=== PATIENT | female | born 2000 | race Hispanic/Latino ===

== ENCOUNTER 2020-07-31 00:53 | Emergency (ER) | payer BC ==
[2020-07-31] MEDS ORDERED: SODIUM CHLORIDE 0.9% 1000ML 1,000 ML IV ONE (01:26)
[2020-07-31] MEDS ORDERED: ONDANSETRON HCL 4 MG/2 ML VIAL ONE (01:26)
[2020-07-31 01:32] LABS: BASOPHILS % (AUTO) 0.5 % (0.0-5.0); EOSINOPHILS % (AUTO) 2.6 % (0.0-8.0); LYMPHOCYTES % (AUTO) 26.4 % (21.0-51.0); MEAN CORPUSCULAR HEMOGLOBIN 30.6 pg (27.0-33.0); MEAN CORPUSCULAR HGB CONC 34.7 g/dL (32.0-36.0); MONOCYTES % (AUTO) 8.4 % (3.0-13.0); NEUTROPHILS % (AUTO) 61.8 % (40.0-77.0); PLATELET COUNT (AUTO) 228 K/uL (130-400); RED BLOOD CELL COUNT(AUTO) 4.32 MIL/uL (4.00-5.50); WHITE BLOOD COUNT (AUTO) 6.4 K/uL (4.8-10.8)
[2020-07-31 01:41] LABS: CREATININE 0.6 mg/dL (0.5-1.5); POTASSIUM 3.7 mmol/L (3.5-5.1)
[2020-07-31 01:46] LABS: BILIRUBIN,TOTAL 0.2 mg/dL (0.2-1.0); TOTAL PROTEIN, SERUM 7.8 g/dL (6.0-8.3)
[2020-07-31 02:07] LABS: APPEARANCE,URINE Clear (CLEAR); BILIRUBIN,URINE Negative (NEGATIVE); COLOR,URINE Yellow (YELLOW); GLUCOSE, URINE (UA) Negative (NEGATIVE); KETONES,URINE 15 mg/dL (NEGATIVE); LEUKOCYTE ESTERASE ,URINE Trace (NEGATIVE); NITRATE,URINE Negative (NEGATIVE); OCCULT BLOOD,URINE Negative (NEGATIVE); PH,URINE 5.5 (5.0-8.0); PROTEIN,URINE Negative (NEGATIVE)
[2020-07-31 02:19] LABS: BACTERIA,URINE Few /HPF (None Seen); MUCUS,URINE Few LPF (None Seen); RBC,URINE None Seen /HPF (0-1); SQUAMOUS EPITHELIAL CELL,UR Moderate /HPF (0-2); WBC,URINE 0-1 /HPF (0-1)
== END 2020-07-31 04:02 | disposition home or self-care (01) ==
LOC: EDH 00:53
DX: O21.0 Mild hyperemesis gravidarum (principal); Z3A.09 9 weeks gestation of pregnancy; Z79.899 Other long term (current) drug therapy
CPT/HCPCS: 36415; 80053; 81001; 85025; 96361; 96374; 99284; J2405; J7030

== ENCOUNTER 2020-08-12 23:18 | Emergency (ER) | payer BC ==
[2020-08-13 00:33] LABS: CREATININE 0.5 mg/dL (0.5-1.5); POTASSIUM 3.4 mmol/L (3.5-5.1)
[2020-08-13 00:37] LABS: ALBUMIN 3.5 g/dL (3.5-5.0); BILIRUBIN,TOTAL 0.1 mg/dL (0.2-1.0)
[2020-08-13 00:42] LABS: BASOPHILS % (AUTO) 0.5 % (0.0-5.0); EOSINOPHILS % (AUTO) 0.9 % (0.0-8.0); LYMPHOCYTES % (AUTO) 22.9 % (21.0-51.0); MEAN CORPUSCULAR HEMOGLOBIN 30.7 pg (27.0-33.0); MEAN CORPUSCULAR VOLUME 87.6 fL (80-100); MONOCYTES % (AUTO) 7.6 % (3.0-13.0); NEUTROPHILS % (AUTO) 67.8 % (40.0-77.0); PLATELET COUNT (AUTO) 214 K/uL (130-400); RED BLOOD CELL COUNT(AUTO) 3.88 MIL/uL (4.00-5.50); RED CELL DISTRIBUTION WIDTH 13.2 % (11.0-15.5); WHITE BLOOD COUNT (AUTO) 5.8 K/uL (4.8-10.8)
[2020-08-13 00:48] LABS: BILIRUBIN,URINE Negative (NEGATIVE); COLOR,URINE Yellow (YELLOW); GLUCOSE, URINE (UA) Negative (NEGATIVE); HCG,QUAL RESULT POSITIVE (NEGATIVE); KETONES,URINE Negative (NEGATIVE); LEUKOCYTE ESTERASE ,URINE Negative (NEGATIVE); NITRATE,URINE Negative (NEGATIVE); OCCULT BLOOD,URINE Negative (NEGATIVE); PH,URINE 7.5 (5.0-8.0); PROTEIN,URINE Negative (NEGATIVE); UROBILINOGEN,URINE 0.2 mg/dL (0.2-1.0)
[2020-08-13 00:49] LABS: APPEARANCE,URINE CLEAR (CLEAR)
== END 2020-08-13 01:20 | disposition home or self-care (01) ==
LOC: EDH 23:18
DX: O9A.211 Injury, poisoning and certain other consequences of external causes complicating pregnancy, first trimester (principal); S76.219A Strain of adductor muscle, fascia and tendon of unspecified thigh, initial encounter; Z3A.11 11 weeks gestation of pregnancy
CPT/HCPCS: 36415; 80053; 81003; 81025; 83690; 85025

== ENCOUNTER 2020-08-17 21:25 | Emergency (ER) | payer BC, MEDICAID ==
[2020-08-17] MEDS ORDERED: ACETAMINOPHEN 325 MG TAB ONE (21:47)
[2020-08-17 21:54] LABS: BASOPHILS % (AUTO) 0.3 % (0.0-5.0); EOSINOPHILS % (AUTO) 0.6 % (0.0-8.0); LYMPHOCYTES % (AUTO) 26.5 % (21.0-51.0); MEAN CORPUSCULAR HEMOGLOBIN 30.4 pg (27.0-33.0); MEAN CORPUSCULAR HGB CONC 34.3 g/dL (32.0-36.0); MEAN CORPUSCULAR VOLUME 88.5 fL (80-100); MONOCYTES % (AUTO) 6.8 % (3.0-13.0); NEUTROPHILS % (AUTO) 65.5 % (40.0-77.0); PLATELET COUNT (AUTO) 207 K/uL (130-400); RED BLOOD CELL COUNT(AUTO) 4.18 MIL/uL (4.00-5.50); RED CELL DISTRIBUTION WIDTH 13.4 % (11.0-15.5); WHITE BLOOD COUNT (AUTO) 6.6 K/uL (4.8-10.8)
[2020-08-17 22:03] LABS: CREATININE 0.6 mg/dL (0.5-1.5); POTASSIUM 4.3 mmol/L (3.5-5.1)
[2020-08-17 22:33] LABS: ALBUMIN 3.9 g/dL (3.5-5.0); BILIRUBIN,TOTAL 0.3 mg/dL (0.2-1.0); TOTAL PROTEIN, SERUM 7.8 g/dL (6.0-8.3)
[2020-08-17 23:23] LABS: APPEARANCE,URINE Clear (CLEAR); BILIRUBIN,URINE Negative (NEGATIVE); COLOR,URINE Yellow (YELLOW); GLUCOSE, URINE (UA) Negative (NEGATIVE); KETONES,URINE >=80 mg/dL (NEGATIVE); LEUKOCYTE ESTERASE ,URINE Trace (NEGATIVE); NITRATE,URINE Negative (NEGATIVE); OCCULT BLOOD,URINE Negative (NEGATIVE); PH,URINE 6.5 (5.0-8.0); PROTEIN,URINE Negative (NEGATIVE); UROBILINOGEN,URINE 0.2 mg/dL (0.2-1.0)
[2020-08-17 23:38] LABS: BACTERIA,URINE Few /HPF (None Seen); RBC,URINE 0-1 /HPF (0-1)
== END 2020-08-18 00:01 | disposition home or self-care (01) ==
LOC: EDH 21:25
DX: O9A.211 Injury, poisoning and certain other consequences of external causes complicating pregnancy, first trimester (principal); S30.0XXA Contusion of lower back and pelvis, initial encounter; O20.0 Threatened abortion; Z79.899 Other long term (current) drug therapy; Z3A.11 11 weeks gestation of pregnancy; W22.8XXA Striking against or struck by other objects, initial encounter; Y93.89 Activity, other specified; Y92.810 Car as the place of occurrence of the external cause; Y99.8 Other external cause status
CPT/HCPCS: 36415; 76801; 80053; 81001; 84702; 85025

== ENCOUNTER 2020-10-10 20:47 | Observation (INO) | payer BC, MEDICAID ==
[~2020-10-10] VITALS: Ht 167.6 cm; Wt 56.7 kg
[2020-10-10 21:25] LABS: APPEARANCE,URINE CLOUDY (CLEAR); BILIRUBIN,URINE NEGATIVE (NEGATIVE); COLOR,URINE YELLOW (YELLOW); GLUCOSE, URINE (UA) NEGATIVE (NEGATIVE); KETONES,URINE 15 mg/dL (NEGATIVE); LEUKOCYTE ESTERASE ,URINE NEGATIVE (NEGATIVE); NITRATE,URINE NEGATIVE (NEGATIVE); OCCULT BLOOD,URINE NEGATIVE (NEGATIVE); PH,URINE 7.5 (5.0-8.0); PROTEIN,URINE NEGATIVE (NEGATIVE); UROBILINOGEN,URINE 0.2 mg/dL (0.2-1.0)
[2020-10-10 21:33] LABS: AMPHET/METH SCREEN,URINE NEGATIVE (NEGATIVE); BARBITURATE SCREEN, URINE NEGATIVE (NEGATIVE); BENZODIAZEPINES SCREEN,URINE NEGATIVE (NEGATIVE); CANNABINOID SCREEN,URINE NEGATIVE (NEGATIVE); COCAINE SCREEN,URINE NEGATIVE (NEGATIVE); OPIATE SCREEN,URINE NEGATIVE (NEGATIVE); PHENCYCLIDINE SCREEN,URINE NEGATIVE (NEGATIVE)
[2020-10-10 21:36] LABS: BACTERIA,URINE Moderate /HPF (None Seen); RBC,URINE 0-1 /HPF (0-1); WBC,URINE 0-1 /HPF (0-1)
[2020-10-10 21:37] LABS: SQUAMOUS EPITHELIAL CELL,UR Few /HPF (0-2)
[2020-10-10 21:38] LABS: AMORPHOUS SEDIMENT,UR Few /LPF (None Seen)
== END 2020-10-10 22:20 | disposition home or self-care (01) ==
LOC: EDH 20:47 → LDH 20:48
PROVIDERS: ADMIT Obstetrics & Gynecology; ATTEND Obstetrics & Gynecology
DX: O26.892 Other specified pregnancy related conditions, second trimester (principal); R10.2 Pelvic and perineal pain; O36.8120 Decreased fetal movements, second trimester, not applicable or unspecified; Z3A.19 19 weeks gestation of pregnancy
CPT/HCPCS: 59025; 80305; 81001; 87088; 99284; G0378

== ENCOUNTER 2020-12-14 02:14 | Observation (INO) | payer BC, MEDICAID ==
[~2020-12-14] VITALS: Ht 170.2 cm; Wt 63.5 kg
[2020-12-14 03:03] LABS: APPEARANCE,URINE Clear (CLEAR); BILIRUBIN,URINE Negative (NEGATIVE); COLOR,URINE Yellow (YELLOW); GLUCOSE, URINE (UA) Negative (NEGATIVE); KETONES,URINE Negative (NEGATIVE); LEUKOCYTE ESTERASE ,URINE Negative (NEGATIVE); NITRATE,URINE Negative (NEGATIVE); OCCULT BLOOD,URINE Negative (NEGATIVE); PROTEIN,URINE Negative (NEGATIVE); UROBILINOGEN,URINE 0.2 mg/dL (0.2-1.0)
[2020-12-14 03:11] LABS: AMPHET/METH SCREEN,URINE NEGATIVE (NEGATIVE); BARBITURATE SCREEN, URINE NEGATIVE (NEGATIVE); BENZODIAZEPINES SCREEN,URINE NEGATIVE (NEGATIVE); CANNABINOID SCREEN,URINE NEGATIVE (NEGATIVE); COCAINE SCREEN,URINE NEGATIVE (NEGATIVE); OPIATE SCREEN,URINE NEGATIVE (NEGATIVE); PHENCYCLIDINE SCREEN,URINE NEGATIVE (NEGATIVE)
[2020-12-14] MEDS ORDERED: LACTATED RINGERS 1000ML 1,000 ML IV SCH (04:00)
[2020-12-14] MEDS ORDERED: FERR-82 PO (04:01)
[2020-12-14] MEDS ORDERED: PREN-196 PO (04:01)
== END 2020-12-14 07:30 | disposition home or self-care (01) ==
LOC: EDH 02:14 → LDH 02:15
PROVIDERS: ADMIT Obstetrics & Gynecology; ATTEND Obstetrics & Gynecology
DX: O26.853 Spotting complicating pregnancy, third trimester (principal); O26.893 Other specified pregnancy related conditions, third trimester; R10.2 Pelvic and perineal pain; Z3A.28 28 weeks gestation of pregnancy; Z87.891 Personal history of nicotine dependence
CPT/HCPCS: 59025; 80305; 81003; 96360; 96361; G0378 ×5

== ENCOUNTER 2020-12-28 14:49 | Observation (INO) | payer BC, MEDICAID ==
[~2020-12-28] VITALS: Ht 170.2 cm; Wt 63.5 kg
[~2020-12-28 14:49] MED LIST: FERR-82 PO; PREN-196 PO
[2020-12-28 15:41] LABS: APPEARANCE,URINE Clear (CLEAR); BILIRUBIN,URINE Negative (NEGATIVE); COLOR,URINE Yellow (YELLOW); GLUCOSE, URINE (UA) Negative (NEGATIVE); KETONES,URINE Negative (NEGATIVE); LEUKOCYTE ESTERASE ,URINE Negative (NEGATIVE); NITRATE,URINE Negative (NEGATIVE); OCCULT BLOOD,URINE Negative (NEGATIVE); PROTEIN,URINE Negative (NEGATIVE); UROBILINOGEN,URINE 0.2 mg/dL (0.2-1.0)
== END 2020-12-28 17:00 | disposition home or self-care (01) ==
LOC: EDH 14:51 → LDH 15:05
PROVIDERS: ADMIT Obstetrics & Gynecology; ATTEND Obstetrics & Gynecology
DX: O36.8130 Decreased fetal movements, third trimester, not applicable or unspecified (principal); Z3A.31 31 weeks gestation of pregnancy
CPT/HCPCS: 59025; 76819; 81003; G0378

== ENCOUNTER 2021-01-19 12:22 | Observation (INO) | payer BC, MEDICAID ==
[2021-01-19 13:07] LABS: APPEARANCE,URINE Clear (CLEAR); BILIRUBIN,URINE Negative (NEGATIVE); COLOR,URINE Yellow (YELLOW); GLUCOSE, URINE (UA) Negative (NEGATIVE); KETONES,URINE Negative (NEGATIVE); LEUKOCYTE ESTERASE ,URINE Negative (NEGATIVE); NITRATE,URINE Negative (NEGATIVE); OCCULT BLOOD,URINE Negative (NEGATIVE); PROTEIN,URINE Negative (NEGATIVE)
== END 2021-01-19 13:40 | disposition home or self-care (01) ==
LOC: LDH 12:22
PROVIDERS: ADMIT Obstetrics & Gynecology; ATTEND Obstetrics & Gynecology
DX: O62.9 Abnormality of forces of labor, unspecified (principal); Z3A.34 34 weeks gestation of pregnancy
CPT/HCPCS: 59025; 81003; G0378; G0379

== ENCOUNTER 2021-02-22 22:49 | Observation (INO) | payer BC, MEDICAID ==
[~2021-02-22] VITALS: Ht 170.2 cm; Wt 69.4 kg
[2021-02-22] MEDS ORDERED: LACTATED RINGERS 1000ML 1,000 ML IV PRN (23:00)
[2021-02-22 23:28] LABS: APPEARANCE,URINE Clear (CLEAR); BILIRUBIN,URINE Negative (NEGATIVE); COLOR,URINE Yellow (YELLOW); GLUCOSE, URINE (UA) Negative (NEGATIVE); KETONES,URINE Negative (NEGATIVE); LEUKOCYTE ESTERASE ,URINE Negative (NEGATIVE); NITRATE,URINE Negative (NEGATIVE); OCCULT BLOOD,URINE Negative (NEGATIVE); PROTEIN,URINE Negative (NEGATIVE)
[2021-02-23 02:57] VITALS: BP 113/70
== END 2021-02-23 03:00 | disposition home or self-care (01) ==
LOC: EDH 22:49 → LDH 23:03
PROVIDERS: ADMIT Obstetrics & Gynecology; ATTEND Obstetrics & Gynecology
DX: O62.9 Abnormality of forces of labor, unspecified (principal); Z3A.39 39 weeks gestation of pregnancy
CPT/HCPCS: 59025 ×2; 81003; G0378 ×4

== ENCOUNTER 2021-03-05 22:26 | Inpatient (IN) | payer BC, MEDICAID ==
[~2021-03-05] VITALS: Ht 167.6 cm; Wt 70.3 kg
[2021-03-05] MEDS ORDERED: LACTATED RINGERS 1000ML 1,000 ML IV PRN (23:00)
[2021-03-05] MEDS ORDERED: LACTATED RINGERS 500 ML 500 ML IV PRN (23:00)
[2021-03-05] MEDS ORDERED: PROMETHAZINE HCL 25 MG/ML 1ML AMPULE IM PRN (23:00)
[2021-03-05] MEDS ORDERED: DINOPROSTONE 10 MG VAGINAL SUPP VG SCH (23:00)
[2021-03-05] MEDS ORDERED: NALOXONE HCL 0.4 MG/1 ML ML IV PRN (23:00)
[2021-03-05] MEDS ORDERED: ROPIVACAINE 0.2% 100ML VIAL 100 ML EP PRN (23:00)
[2021-03-05] MEDS ORDERED: MEPERIDINE-PF 50 MG/ML SYG IVP PRN (23:00)
[2021-03-05] MEDS ORDERED: EPHEDRINE SULFATE 50 MG/ML AMPULE IVP PRN (23:00)
[2021-03-05 23:32] LABS: APPEARANCE,URINE Clear (CLEAR); BILIRUBIN,URINE Negative (NEGATIVE); COLOR,URINE Yellow (YELLOW); GLUCOSE, URINE (UA) Negative (NEGATIVE); KETONES,URINE 15 mg/dL (NEGATIVE); LEUKOCYTE ESTERASE ,URINE Negative (NEGATIVE); NITRATE,URINE Negative (NEGATIVE); OCCULT BLOOD,URINE Negative (NEGATIVE); PROTEIN,URINE Negative (NEGATIVE)
[2021-03-05 23:55] VITALS: BP 120/78
[2021-03-06 00:07] LABS: HEMATOCRIT 31.9 % (36-48); MEAN CORPUSCULAR HEMOGLOBIN 28.3 pg (27.0-33.0); MEAN CORPUSCULAR HGB CONC 32.3 g/dL (32.0-36.0); MEAN CORPUSCULAR VOLUME 87.6 fL (79-99); RED BLOOD CELL COUNT(AUTO) 3.64 MIL/uL (4.00-5.50); RED CELL DISTRIBUTION WIDTH 15.7 % (11.0-15.5); WHITE BLOOD COUNT (AUTO) 6.3 K/uL (4.8-10.8)
[2021-03-06] MEDS ORDERED: OXYTOCIN-LR 20 UNITS/1000 ML 1,000 ML IV SCH (09:00)
[2021-03-06] MEDS ORDERED: MISOPROSTOL 100 MCG TABLET VG SCH (18:30)
[2021-03-07] MEDS ORDERED: MISOPROSTOL 200 MCG TABLET ONE (04:41)
[2021-03-07] MEDS ORDERED: METHYLERGONOVINE MALEATE 0.2 MG/1 ML ML ONE (04:41)
[2021-03-07] MEDS ORDERED: ACETAMINOPHEN 325 MG TAB PO PRN (05:30)
[2021-03-07] MEDS ORDERED: BENZOCAINE/LANOLIN/ALOE VERA 60 ML AEROSOL TP PRN (05:30)
[2021-03-07] MEDS ORDERED: LANOLIN 30GM OINTMENT TP PRN (05:30)
[2021-03-07] MEDS ORDERED: MEASLES/MUMPS/RUBELLA VACCINE, LIVE 0.5 ML/VIAL SQ PRN (05:30)
[2021-03-07] MEDS ORDERED: DIPH,PERTUSS(ACELL),TET VAC/PF 0.5 ML VIAL IM PRN (05:30)
[2021-03-07] MEDS ORDERED: OXYTOCIN-LR 20 UNITS/1000 ML 1,000 ML IV SCH (05:30)
[2021-03-07] MEDS ORDERED: WITCH HAZEL 1 PAD TP PRN (05:30)
[2021-03-07 07:20] VITALS: BP 123/67
[2021-03-07 08:15] LABS: HEPATITIS Bs ANTIGEN SCREEN P Negative (Negative)
[2021-03-07] MEDS: DOCUSATE SODIUM 100 MG CAP PO SCH ×2 (08:15→20:44)
[2021-03-07] MEDS: IBUPROFEN 600 MG TABLET PO PRN ×3 (08:33→23:27)
[2021-03-07] MEDS: ACETAMINOPHEN WITH CODEINE 1 TAB TAB PO PRN ×2 (10:18→20:46)
[2021-03-07 16:05] VITALS: BP 112/68
[2021-03-07] MEDS ORDERED: PREN-61 PO (16:44)
[2021-03-07] MEDS ORDERED: FERR-72 PO (16:44)
[2021-03-07 19:18] VITALS: BP 133/89
[2021-03-07 20:24] VITALS: BP 107/51
[2021-03-07 23:22] VITALS: BP 116/73
[2021-03-08 03:00] VITALS: BP 120/53
[2021-03-08 06:48] LABS: HEMATOCRIT 29.1 % (36-48); MEAN CORPUSCULAR HGB CONC 31.3 g/dL (32.0-36.0); MEAN CORPUSCULAR VOLUME 89.5 fL (79-99); RED BLOOD CELL COUNT(AUTO) 3.25 MIL/uL (4.00-5.50); RED CELL DISTRIBUTION WIDTH 15.8 % (11.0-15.5); WHITE BLOOD COUNT (AUTO) 9.6 K/uL (4.8-10.8)
[2021-03-08 07:25] VITALS: BP 116/64
[2021-03-08] MEDS: DOCUSATE SODIUM 100 MG CAP PO SCH (07:49)
[2021-03-08] MEDS: IBUPROFEN 600 MG TABLET PO PRN (07:53)
[2021-03-08] MEDS ORDERED: IBUP-2077 PO (10:26)
[2021-03-08] MEDS ORDERED: DOCU-116 PO (10:27)
== END 2021-03-08 13:00 | disposition home or self-care (01) | DRG 806 ==
LOC: LDH 22:26 → WSH 03-07 07:05
PROVIDERS: ADMIT Obstetrics & Gynecology; ATTEND Obstetrics & Gynecology
PROC: 10E0XZZ Delivery of Products of Conception, External Approach (ICD-10-PCS; principal; 2021-03-07)
PROC: 0UQMXZZ Repair Vulva, External Approach (ICD-10-PCS; 2021-03-07)
PROC: 3E0234Z Introduction of Serum, Toxoid and Vaccine into Muscle, Percutaneous Approach (ICD-10-PCS; 2021-03-07)
PROC: 3E0134Z Introduction of Serum, Toxoid and Vaccine into Subcutaneous Tissue, Percutaneous Approach (ICD-10-PCS; 2021-03-07)
PROC: 3E033VJ Introduction of Other Hormone into Peripheral Vein, Percutaneous Approach (ICD-10-PCS; 2021-03-07)
PROC: 3E0P7GC Introduction of Other Therapeutic Substance into Female Reproductive, Via Natural or Artificial Opening (ICD-10-PCS; 2021-03-07)
PROC: 0UQGXZZ Repair Vagina, External Approach (ICD-10-PCS; 2021-03-07)
PROC: 3E0R3BZ Introduction of Anesthetic Agent into Spinal Canal, Percutaneous Approach (ICD-10-PCS; 2021-03-07)
PROC: 00HU33Z Insertion of Infusion Device into Spinal Canal, Percutaneous Approach (ICD-10-PCS; 2021-03-07)
DX: O99.344 Other mental disorders complicating childbirth (principal); O71.4 Obstetric high vaginal laceration alone; Z37.0 Single live birth; F41.9 Anxiety disorder, unspecified; O71.82 Other specified trauma to perineum and vulva; Z3A.40 40 weeks gestation of pregnancy; Z23 Encounter for immunization
CPT/HCPCS: 36415; 81003; 85027; 86592; 86850; 86900; 86901; 87340; A4314; G0378; J2210; J2590; J2795; J7120

== ENCOUNTER 2022-02-11 20:50 | Emergency (ER) | payer BC, MEDICAID ==
[~2022-02-11] VITALS: Ht 170.2 cm; Wt 54.0 kg
[~2022-02-11 20:50] MED LIST changes: +DOCU-116 PO; +FERR-72 PO; +IBUP-2077 PO; +PREN-61 PO
[2022-02-11 21:18] LABS: APPEARANCE,URINE CLEAR (CLEAR); BILIRUBIN,URINE NEGATIVE (NEGATIVE); COLOR,URINE YELLOW (YELLOW); GLUCOSE, URINE (UA) NEGATIVE (NEGATIVE); KETONES,URINE NEGATIVE (NEGATIVE); LEUKOCYTE ESTERASE ,URINE NEGATIVE (NEGATIVE); NITRATE,URINE NEGATIVE (NEGATIVE); OCCULT BLOOD,URINE NEGATIVE (NEGATIVE); PH,URINE 7.5 (5.0-8.0); PROTEIN,URINE NEGATIVE (NEGATIVE); UROBILINOGEN,URINE 0.2 mg/dL (0.2-1.0)
[2022-02-11 21:22] LABS: HCG,QUALITATIVE URINE NEGATIVE (NEGATIVE)
[2022-02-11] MEDS ORDERED: 0.9%NACL 1000ML 1,000 ML IV SCH (21:30)
[2022-02-11 21:33] LABS: BASOPHILS % (AUTO) 0.6 % (0.0-5.0); EOSINOPHILS % (AUTO) 1.7 % (0.0-8.0); LYMPHOCYTES % (AUTO) 47.1 % (21.0-51.0); MEAN CORPUSCULAR HEMOGLOBIN 31.7 pg (27.0-33.0); MEAN CORPUSCULAR HGB CONC 34.1 g/dL (32.0-36.0); MONOCYTES % (AUTO) 7.3 % (3.0-13.0); NEUTROPHILS % (AUTO) 43.1 % (40.0-77.0); PLATELET COUNT (AUTO) 209 K/uL (130-400); RED BLOOD CELL COUNT(AUTO) 4.41 MIL/uL (4.00-5.50); RED CELL DISTRIBUTION WIDTH 12.4 % (11.0-15.5); WHITE BLOOD COUNT (AUTO) 4.6 K/uL (4.8-10.8)
[2022-02-11 21:40] LABS: CREATININE 0.6 mg/dL (0.5-1.5); POTASSIUM 3.9 mmol/L (3.5-5.1)
[2022-02-11 21:51] LABS: ALBUMIN 4.1 g/dL (3.5-5.0); TOTAL PROTEIN, SERUM 7.4 g/dL (6.0-8.3)
[2022-02-11 22:18] VITALS: BP 120/75
== END 2022-02-11 22:20 | disposition home or self-care (01) ==
LOC: EDH 20:50
DX: I95.1 Orthostatic hypotension (principal); E86.0 Dehydration; Z79.1 Long term (current) use of non-steroidal anti-inflammatories (NSAID)
CPT/HCPCS: 99283; 96360; 80053; 85025; 81003; 81025; 36415; J7030

== ENCOUNTER 2023-11-18 15:04 | Emergency (ER) | payer BC, MEDICAID ==
[~2023-11-18] VITALS: Ht 170.2 cm; Wt 55.3 kg
[2023-11-18 16:20] LABS: BASOPHILS # (AUTO) 0.02 K/uL (0.00-0.20); BASOPHILS % (AUTO) 0.4 % (0.0-5.0); EOSINOPHILS # (AUTO) 0.04 K/uL (0.00-0.70); EOSINOPHILS % (AUTO) 0.8 % (0.0-8.0); HEMATOCRIT 37.4 % (36-48); IMMATURE GRANULOCYTE ABSOLUTE 0.01 K/uL (0-1); LYMPHOCYTES # (AUTO) 1.5 K/uL (1.0-4.8); LYMPHOCYTES % (AUTO) 28.9 % (21.0-51.0); MEAN CORPUSCULAR HEMOGLOBIN 31.8 pg (27.0-33.0); MEAN CORPUSCULAR HGB CONC 34.2 g/dL (32.0-36.0); MEAN CORPUSCULAR VOLUME 92.8 fL (79-99); MONOCYTES # (AUTO) 0.4 K/uL (0.1-1.0); MONOCYTES % (AUTO) 7.5 % (3.0-13.0); NEUTROPHILS # (AUTO) 3.2 K/uL (1.8-7.7); NEUTROPHILS % (AUTO) 62.2 % (40.0-77.0); PLATELET COUNT (AUTO) 207 K/uL (130-400); RED BLOOD CELL COUNT(AUTO) 4.03 MIL/uL (4.00-5.50); RED CELL DISTRIBUTION WIDTH 12.4 % (11.0-15.5); WHITE BLOOD COUNT (AUTO) 5.1 K/uL (4.8-10.8)
[2023-11-18 16:30] LABS: CREATININE 0.6 mg/dL (0.5-1.0); POTASSIUM 3.7 mmol/L (3.5-5.1)
[2023-11-18 16:31] LABS: INR <= 0.93 (0.85-1.15); PROTHROMBIN TIME 10.9 SEC (9.6-11.6)
[2023-11-18 16:32] LABS: PARTIAL THROMBOPLASTIN TIME 30.2 SEC (26.3-35.5)
[2023-11-18 17:14] LABS: APPEARANCE,URINE CLEAR (CLEAR); BILIRUBIN,URINE NEGATIVE (NEGATIVE); COLOR,URINE YELLOW (YELLOW); GLUCOSE, URINE (UA) NEGATIVE (NEGATIVE); KETONES,URINE NEGATIVE (NEGATIVE); LEUKOCYTE ESTERASE ,URINE NEGATIVE Leu/uL (NEGATIVE); NITRATE,URINE NEGATIVE (NEGATIVE); OCCULT BLOOD,URINE NEGATIVE (NEGATIVE); PH,URINE 6.5 (5.0-8.0); PROTEIN,URINE NEGATIVE (NEGATIVE); UROBILINOGEN,URINE 0.2 mg/dL (0.2-1.0)
[2023-11-18 17:15] LABS: ADD UA MICROSCOPIC YES
[2023-11-18 17:16] LABS: HCG,QUALITATIVE URINE POSITIVE (NEGATIVE)
[2023-11-18 17:24] LABS: BACTERIA,URINE RARE /HPF (None Seen); MUCUS,URINE RARE LPF (None Seen); RBC,URINE 0-1 /HPF (0-1); SQUAMOUS EPITHELIAL CELL,UR FEW /HPF (0-2); WBC,URINE 0-1 /HPF (0-1)
[2023-11-18 18:16] VITALS: BP 128/75; PULSE 71; RESP 20; O2SAT 98
== END 2023-11-18 18:16 | disposition home or self-care (01) ==
LOC: EDH 15:04
DX: O26.891 Other specified pregnancy related conditions, first trimester (principal); R10.9 Unspecified abdominal pain; R10.2 Pelvic and perineal pain; Z3A.01 Less than 8 weeks gestation of pregnancy
CPT/HCPCS: 36415; 76801; 80048; 81001; 81025; 84702; 85025; 85610; 85730

== ENCOUNTER 2024-06-22 10:40 | Observation (INO) | payer BC, MEDICAID ==
[~2024-06-22] VITALS: Ht 170.2 cm; Wt 69.4 kg
[2024-06-22 10:43] VITALS: BP 119/66; PULSE 117; RESP 20; TEMP 98
[2024-06-22 12:08] LABS: APPEARANCE,URINE CLOUDY (CLEAR); BILIRUBIN,URINE NEGATIVE (NEGATIVE); COLOR,URINE YELLOW (YELLOW); GLUCOSE, URINE (UA) 200 mg/dL (NEGATIVE); KETONES,URINE 5 mg/dL (NEGATIVE); LEUKOCYTE ESTERASE ,URINE 25 Leu/uL (NEGATIVE); NITRATE,URINE NEGATIVE (NEGATIVE); OCCULT BLOOD,URINE NEGATIVE (NEGATIVE); PROTEIN,URINE 20 mg/dL (NEGATIVE); UROBILINOGEN,URINE 0.2 mg/dL (0.2-1.0)
[2024-06-22 12:38] LABS: ADD UA MICROSCOPIC YES
[2024-06-22 12:41] LABS: BACTERIA,URINE RARE /HPF (None Seen); MUCUS,URINE RARE LPF (None Seen); SQUAMOUS EPITHELIAL CELL,UR MANY /HPF (0-2)
--- NOTE | 2024-06-22 12:45 | HMCIMG ---
US FBP WO NON-STRESS HISTORY: Decreased pulmonary COMPARISON: 01/20/2024 TECHNIQUE: Ultrasound biophysical profile study was performed. FINDINGS: Patient scored a total of 8 points with 2 points each for breathing movements, gross body movements, tone and amniotic fluid volume. Fetus is in cephalic presentation with longitudinal lie. heart rate is 145 beats per minute. Amniotic fluid index is 9 centimeter. Placenta is located in the fundus IMPRESSION: 1. Normal ultrasound biophysical profile study.
== END 2024-06-22 13:01 | disposition home or self-care (01) ==
LOC: EDH 10:40 → LDH 10:41 → EDH 10:47
PROVIDERS: ADMIT Obstetrics & Gynecology; ATTEND Obstetrics & Gynecology
DX: O36.8130 Decreased fetal movements, third trimester, not applicable or unspecified (principal); Z3A.36 36 weeks gestation of pregnancy; Z79.899 Other long term (current) drug therapy
CPT/HCPCS: 81001; 76819; G0378 ×2; G0379

== ENCOUNTER 2024-07-09 17:20 | Inpatient (IN) | payer BC, MEDICAID ==
[~2024-07-09] VITALS: Ht 170.2 cm; Wt 69.9 kg
[2024-07-09 18:17] LABS: HEMATOCRIT 34.2 % (36-48); MEAN CORPUSCULAR HEMOGLOBIN 28.2 pg (27.0-33.0); PLATELET COUNT (AUTO) 167 K/uL (130-400); RED BLOOD CELL COUNT(AUTO) 3.76 MIL/uL (4.00-5.50); RED CELL DISTRIBUTION WIDTH 14.5 % (11.0-15.5); WHITE BLOOD COUNT (AUTO) 6.1 K/uL (4.8-10.8)
[2024-07-09 18:20] LABS: ADD UA MICROSCOPIC NO; APPEARANCE,URINE CLEAR (CLEAR); BILIRUBIN,URINE NEGATIVE (NEGATIVE); COLOR,URINE LIGHT-YELLOW (YELLOW); GLUCOSE, URINE (UA) NEGATIVE (NEGATIVE); KETONES,URINE NEGATIVE (NEGATIVE); LEUKOCYTE ESTERASE ,URINE NEGATIVE Leu/uL (NEGATIVE); NITRATE,URINE NEGATIVE (NEGATIVE); OCCULT BLOOD,URINE NEGATIVE (NEGATIVE); PROTEIN,URINE NEGATIVE (NEGATIVE); UROBILINOGEN,URINE 0.2 mg/dL (0.2-1.0)
[2024-07-09] MEDS ORDERED: MEPERIDINE-PF 50 MG/ML SYG IVP PRN (18:30)
[2024-07-09] MEDS ORDERED: NALoxone HCL 0.4 MG/1 ML ML IV PRN (18:30)
[2024-07-09] MEDS ORDERED: ePHEDrine SULFate 50 MG/ML AMPULE IVP PRN (18:30)
[2024-07-09] MEDS ORDERED: PROMETHAZINE HCL 25 MG/ML 1ML AMPULE IM PRN (18:30)
[2024-07-09] MEDS ORDERED: LACTATED RINGERS 500 ML 500 ML IV PRN (18:30)
[2024-07-09] MEDS: MISOPROSTOL 25 MCG TAB VG PRN (18:58)
[2024-07-09] MEDS: LACTATED RINGERS 1000ML 1,000 ML IV PRN (18:58)
[2024-07-10] MEDS ORDERED: MISOPROSTOL 200 MCG TABLET ONE (13:14)
[2024-07-10] MEDS ORDERED: LIDOCAINE HCL 1% 20 ML VIAL ONE (13:14)
[2024-07-10] MEDS ORDERED: acetaMINOPHEN 325 MG TAB PO PRN (14:00)
[2024-07-10] MEDS ORDERED: WITCH HAZEL 1 PAD TP PRN (14:00)
[2024-07-10] MEDS ORDERED: DIPH,PERTUSS(ACELL),TET VAC/PF 0.5 ML VIAL IM PRN (14:00)
[2024-07-10] MEDS ORDERED: BENZOCAINE/LANOLIN/ALOE VERA 60 ML AEROSOL TP PRN (14:00)
[2024-07-10] MEDS ORDERED: LANOLIN 30GM OINTMENT TP PRN (14:00)
[2024-07-10] MEDS ORDERED: MEASLES/MUMPS/RUBELLA VACCINE, LIVE 0.5 ML/VIAL SQ PRN (14:00)
--- NOTE | 2024-07-10 15:29 | OP ---
DATE OF PROCEDURE: 07/10/2024 DELIVERY NOTE The patient is a 24-year-old [place] female 2, para 1 with intrauterine at 39 weeks and 1 day. The patient was admitted for induction of labor. On admission, the patient was 0 cm dilated, 50% effaced and -3 station. Overnight, the patient received 3 doses of Cytotec followed by Pitocin in the morning. Amniotomy was performed at 2 cm with clear fluid noted. Epidural was used for pain control. Active phase of labor was rapid. The patient delivered via normal spontaneous vaginal delivery, a viable and vigorous male in cephalic presentation weighing 7 pounds 2 ounces (3230 grams) with scores of 9 and 9. Infant's head and body were delivered without difficulty. Infant was placed on mother's abdomen for drying. Nares and mouth were bulb suctioned. Cord was doubly clamped and cut in sterile fashion by father. Cord blood was collected for analysis. Placenta was spontaneous and intact with 3-vessel cord. Good uterine involution was noted with 20 units of Pitocin IV fluids and fundal massage. Perineum was intact. Mother and baby were stable to recovery. GBS status was negative. Epidural was used for pain control. TID: [id number] RECEIPT: [id number]
[2024-07-10 16:30] VITALS: BP 119/61; PULSE 65; RESP 18; TEMP 97.8
--- NOTE | 2024-07-10 16:30 | NUR ---
PATIENT REFUSED MEDICATION FOR N/V. Addendum: 07/10/24 at 1840 by RACHNA LACEY RN RN Amended: Links added.
[2024-07-10] MEDS: acetaMINOPHEN WITH coDEINE 1 TAB TAB PO PRN (17:06)
--- NOTE | 2024-07-10 17:15 | NUR ---
PATIENT REFUSED AGAIN MEDICATION FOR N/V. Addendum: 07/10/24 at 1844 by RACHNA LACEY RN RN Amended: Links added.
--- NOTE | 2024-07-10 17:30 | NUR ---
SS Trigger/Assessment Nurse with patient. Attempted twice. CM to revisit patient at a later time.
[2024-07-10] MEDS ORDERED: PREN1TAB80 PO (18:59)
--- NOTE | 2024-07-10 19:05 | NUR ---
SHIFT CHANGE REPORT GIVEN TO ANGIE Dee RN FOR CONTINUITY OF PATIENT CARE.
[2024-07-10 19:40] VITALS: BP 122/67; PULSE 76; RESP 20; TEMP 99.5
[2024-07-10] MEDS: doCUSate SODIUM 100 MG CAP PO SCH (20:53)
[2024-07-10 23:37] VITALS: BP 120/73; PULSE 84; RESP 18; TEMP 98.6
[2024-07-11 03:43] VITALS: BP 115/65; PULSE 86; RESP 20; TEMP 97.8
[2024-07-11] MEDS: ibuPROFEN 600 MG TABLET PO PRN (03:43)
[2024-07-11 07:20] VITALS: BP 111/47; PULSE 71; RESP 17; TEMP 97.9
[2024-07-11 09:18] LABS: HEMATOCRIT 31.3 % (36-48); MEAN CORPUSCULAR HEMOGLOBIN 28.4 pg (27.0-33.0); MEAN CORPUSCULAR HGB CONC 31.6 g/dL (32.0-36.0); MEAN CORPUSCULAR VOLUME 89.7 fL (79-99); RED BLOOD CELL COUNT(AUTO) 3.49 MIL/uL (4.00-5.50); RED CELL DISTRIBUTION WIDTH 14.6 % (11.0-15.5); WHITE BLOOD COUNT (AUTO) 9.7 K/uL (4.8-10.8)
[2024-07-11 12:00] VITALS: BP 118/62; PULSE 95; RESP 18; TEMP 98.5
--- NOTE | 2024-07-11 13:20 | NUR ---
DISCHARGE INSTRUCTIONS DISCHARGE INSTRUCTIONS REVIEWED AND GIVEN TO PATIENT, PATIENT VERBALIZED UNDERSTANDING, NO QUESTIONS OR CONCERNS VOICED. PENDING DISCHARGE ON BABY.
--- NOTE | 2024-07-11 13:20 | NUR ---
AFTER GIVEN DISCHARGE INSTRUCTIONS, ASKED PATIENT IF THEY HAVE [employer] ALREADY INSTALLED IN VEHICLE FOR THEIR BABY UPON DISCHARGE, PATIENT VOICED THAT THEY DO.
--- NOTE | 2024-07-11 13:44 | NUR ---
SPOKE WITH TAJ LAI; NOTIFIED OF CM ATTEMPTS YESTERDAY & NEEDING COMPLETION OF ASSESSMENT BY CM. PER JOELLE WILL BE IN TO SEE PATIENT SHORTLY. NOTIFIED NALDO AT NURSERY.
--- NOTE | 2024-07-11 13:50 | NUR ---
PATIENT CALLED REQUESTING NURSE TO ASSESS HER RIGHT HAND WHERE IV SITE WAS REMOVED FROM EARLIER. PATIENT STATES SHE HAS NOTICED CLEAR FLUID COMING OUT OF SITE SINCE SHE REMOVED GAUZE & BANDAID APPLIED AFTER REMOVAL OF IV. STATES SHE WIPED IT OFF AND LATER NOTICES MORE CLEAR FLUID TO SITE AND REDNESS TO AROUND SITE ON HER HAND. UPON ASSESSMENT & WITH GLOVES IN PLACE, NOTE A DROP OF CLEAR FLUID TO SITE WHERE IV WAS REMOVED, NOTE MILD REDNESS/IRRITATION TO SKIN ON TOP OF HER HAND (MILD RASH-LIKE), CLEANSED AREA WITH ALCOHOL PAD. RE-ASSESSED AREA & NOTED FLAT, NO EDEMA, SKIN INTACT, REDNESS LESSENED/FADING, PATIENT ABLE TO MOVE HER HAND AND MAKE FIST WELL. CAPILLARY REFILL LESS THAN 3 SECONDS NOTED. NO BRUISING, DISCOLORATION, OR INFILTRATION NOTED. PATIENT STATES HER HAND FEELS "A LITTLE WEIRD" AND SOME SORENESS TO AREA. OFFERED ICE PACK, PATIENT DECLINED. NO MORE CLEAR FLUID NOTED TO SITE, APPLIED CLEAN/DRY 2X2 GAUZE AND BANDAID TO SITE. INSTRUCTED TO CALL IF NEEDED OR ANY FURTHER ISSUES. PATIENT VERBALIZED UNDERSTANDING.
--- NOTE | 2024-07-11 14:13 | NUR ---
DC PLAN VISITED WITH PATIENT. PATIENT LIVES WITH SPOUSE. INDEPENDENT ABLE TO PERFORM ADL'S. PATIENT HAS NO SERVICES OR DME'S. RECEIVED TRIGGER ABOUT HISTORY OF DEPRESSION. SAID NOT HAVING ANY ISSUES. SAID FIRST BABY WAS DIFFICULT BUT THAT SHE HAD GOTTEN PSYCHIATRIC HELP AT THE TIME AND NO LONGER HAS DOES FEELINGS. VERBALIZED UNDERSTANDING ABOUT GETTING HELP IF STARTS FEELING ANY DEPRESSIVE FEELINGS. LET NURSE KNOW OF CONVERSATION. Addendum: 07/11/24 at 1416 by JOELLE ARCEO RN CM Amended: Links added.
--- NOTE | 2024-07-11 14:40 | NUR ---
PATIENT CALLED AGAIN REQUESTING A RE-ASSESSMENT TO HER RIGHT HAND. IN TO SEE PATIENT WITH CHARGE NURSE MARIELA VICENTE RN. Carol VICENTE RN ASSESSED PATIENT'S RIGHT HAND, PATIENT HAD ALREADY REMOVED DRESSING THAT WAS PLACED. PATIENT STATES NO MORE CLEAR FLUID DRAINAGE TO SITE BUT THAT STILL HAS SOME REDNESS TO HAND AROUND IV REMOVAL SITE. PATIENT REPORTS FEELS DISCOMFORT TO AREA AND ALSO TO RIGHT ANTECUBITAL AREA. SITES APPEAR WITHIN NORMAL LIMITS, NO INFILTRATIONS, REDNESS MUCH IMPROVED & VERY MINIMAL REDNESS NOTED, NO EDEMA, SKIN INTACT BUT NOTE DRY SKIN. PATIENT ABLE MOVE HAND AND EXTREMITY VERY WELL, ROM WNL, NO BRUISING OR DISCOLORATION NOTED, CAPILLARY REFILL LESS THAN 3 SECONDS, MOVES AND WIGGLES FINGERS NORMALLY WITHOUT ANY COMPLAINTS. PATIENT WAS OFFERED AN ICE PACK OR WARM COMPRESS TO APPLY TO HAND, PATIENT REFUSED. EXPLAINED TO PATIENT THAT SORENESS TO SITE MAY OCCUR IF IV CATHETER WAS ACCIDENTALLY BUMPED WHILE SHE HANDLES HER BABY OR DURING SLEEP. SPOUSE AT BEDSIDE STATED THAT PATIENT DID BUMP INTO IT SOME WHEN SHE WAS CHANGING BABY. PATIENT STATES SHE WILL JUST MONITOR HER HAND FOR NOW.
--- NOTE | 2024-07-11 15:35 | NUR ---
RE-ASSESSED PATIENT'S RIGHT HAND. VERY SMALL AREA TO SLIGHTLY BELOW WRIST AREA ON RIGHT HAND WITH SCANT LIGHT REDNESS NOTED, REDNESS TO AROUND IV SITE REMOVAL AREA GONE. PATIENT CONTINUES TO MOVE HER HAND AND ARM VERY WELL, PATIENT HOLDING HER BABY VERY WELL IN HER ARMS HER BABY. PATIENT STATES FEELS BETTER BUT WILL CONTINUE TO MONITOR. PATIENT ASKED "DID YOU DOCUMENT EVERYTHING IN CASE?" REPLIED THAT WE DO DOCUMENT. PATIENT STATES "OK".
--- NOTE | 2024-07-11 15:40 | NUR ---
DISCHARGE PATIENT DISCHARGED HOME IN STABLE CONDITION, PATIENT TRANSPORTED VIA WHEELCHAIR WITH HER BABY IN HER ARMS TO THEIR PRIVATE VEHICLE BY [employer]. PATIENT'S SPOUSE AT SIDE AND DRIVING THEM HOME.
== END 2024-07-11 15:40 | disposition home or self-care (01) | DRG 807 ==
LOC: LDH 17:20 → WSH 07-10 16:00
PROVIDERS: ADMIT Obstetrics & Gynecology; ATTEND Obstetrics & Gynecology
PROC: 10E0XZZ Delivery of Products of Conception, External Approach (ICD-10-PCS; principal; 2024-07-10)
PROC: 10907ZC Drainage of Amniotic Fluid, Therapeutic from Products of Conception, Via Natural or Artificial Opening (ICD-10-PCS; 2024-07-10)
PROC: 3E0P7VZ Introduction of Hormone into Female Reproductive, Via Natural or Artificial Opening (ICD-10-PCS; 2024-07-10)
PROC: 3E0R3BZ Introduction of Anesthetic Agent into Spinal Canal, Percutaneous Approach (ICD-10-PCS; 2024-07-10)
PROC: 00HU33Z Insertion of Infusion Device into Spinal Canal, Percutaneous Approach (ICD-10-PCS; 2024-07-10)
DX: O80 Encounter for full-term uncomplicated delivery (principal); Z37.0 Single live birth; Z3A.39 39 weeks gestation of pregnancy
CPT/HCPCS: 36415; 81003; 85027; 86592; 86850; 86900; 86901; 87340; A4314; G0378; J2795; J7120